=== PATIENT | male | born 1955 | race Asian ===

== ENCOUNTER 2021-10-11 19:16 | Emergency (ER) | payer OTHER ==
[~2021-10-11] VITALS: Ht 177.8 cm; Wt 61.2 kg
[2021-10-11 19:42] LABS: PLATELET COUNT 96 K/uL (142-355)
[2021-10-11 21:30] VITALS: BP 129/71; TEMP 98.5
[2021-10-11] MEDS ORDERED: FINASTERIDE5 MG PO (23:31)
[2021-10-11] MEDS ORDERED: TAMSULOSIN HYD0.4 MG PO (23:32)
[2021-10-11] MEDS ORDERED: INSU100I2 SC (23:34)
[2021-10-11] MEDS ORDERED: LANTUS100 UNIT/M SC (23:35)
[2021-10-11] MEDS ORDERED: LORATADINE10 MG PO (23:36)
[2021-10-11] MEDS ORDERED: VENLAFAXINE ER PO (23:39)
[2021-10-11] MEDS ORDERED: LIRA18IN SC (23:50)
[2021-10-11] MEDS ORDERED: BUSPIRONE HYDROC5 MG PO (23:51)
[2021-10-11] MEDS ORDERED: DIVA125C PO (23:52)
[2021-10-11] MEDS ORDERED: DOK100 MG PO (23:53)
[2021-10-12] MEDS ORDERED: INSULIN LI100 UNIT/1 SC (00:09)
[2021-10-12] MEDS ORDERED: MEDROXYPR AC5 MG PO (00:11)
[2021-10-12] MEDS ORDERED: ROPINIROLE0.5 MG PO (00:12)
[2021-10-12] MEDS ORDERED: RISP1TAB PO (00:14)
[2021-10-12] MEDS ORDERED: BACLOFEN10 MG PO (00:15)
[2021-10-12] MEDS ORDERED: MIDODRINE5 MG PO (00:16)
[2021-10-12] MEDS ORDERED: BUDE1AER5 INH (00:18)
[2021-10-12] MEDS ORDERED: HYDROCHLOROT12.5 M1 PO (00:19)
[2021-10-12] MEDS ORDERED: LISI5TAB10 PO (00:21)
[2021-10-12] MEDS ORDERED: ZINC50 M1 PO (00:22)
[2021-10-12] MEDS ORDERED: GLUCAGON1 MG SC (00:28)
== END 2021-10-11 21:30 | disposition still patient (30) ==
LOC: ED 19:16
PROVIDERS: Emergency Medicine Emergency Medical Services
DX: F03.91 Unspecified dementia, unspecified severity, with behavioral disturbance (principal); Z11.52 Encounter for screening for COVID-19; Z04.6 Encounter for general psychiatric examination, requested by authority
CPT/HCPCS: 36415; 80053; 81000; 85027; 87635; 93005; 99283; U0003